=== PATIENT | male | born 1955 | race Caucasian/White ===

== ENCOUNTER 2016-09-18 06:24 | Day surgery (SDC) | payer OTHER ==
[~2016-09-18] VITALS: Ht 170.2 cm; Wt 92.3 kg
[~2016-09-18 06:24] MED LIST: ASPI81CH CHEW; ENAL5TAB PO; PRAS10TA PO; ROSU40 PO
[2016-09-18] MEDS ORDERED: NS 1000P @30 MLS/HR (KVO) IV SCH (06:45)
[2016-09-18 07:39] VITALS: BP 131/85; PULSE 60; RESP 18; TEMP 98.3; O2SAT 97
[2016-09-18] MEDS ORDERED: NITR0.4S SL (07:45)
[2016-09-18] MEDS ORDERED: METO50TA PO (07:45)
[2016-09-18] MEDS ORDERED: HEPARIN-NS/PF INJ 500 ML ONE (07:49)
[2016-09-18] MEDS ORDERED: MIDAZOLAM HCL 2 MG/2 ML VIAL ONE (07:49)
--- NOTE | 2016-09-18 08:37 | MA ---
cc: THOMAS NAJERA MD DATE: 09/18/2016 PROCEDURE Cardiac catheterization. PROCEDURAL STATEMENTS The patient was prepped and draped in the usual fashion. A 6 sheath was inserted percutaneously into the right femoral artery. Coronary angiography was done with Ant preformed catheters. Left ventriculography was done with a pigtail catheter in JAPANESE projections. RESULTS HEMODYNAMICS Aortic pressure was 140/65. Left ventricular end-diastolic pressure was 10. There was no gradient across the aortic valve. CORONARY ARTERIOGRAPHY The left main coronary was normal. The left anterior descending artery was normal throughout its course. The left circumflex artery was normal throughout its course. The right coronary was anatomically dominant. In the proximal portion there were multiple stents noted in essentially the same area of the proximal RCA. There was some in-stent stenosis of approximately 30%. The distal right coronary was free from disease. A LENNY was identified and was widely patent. LEFT VENTRICULOGRAPHY Left ventriculography demonstrated normal size left ventricle. There appeared to be some basilar wall hypokinesis. Overall ejection fraction was estimated at 50%. No mitral regurgitation was present. The aortic outflow tract appeared normal. CONCLUSIONS The patient demonstrates patent stents in the right coronary with preserved left ventricular ejection fraction and a widely patent right internal mammary artery. MD ABRIL De/TRISTIN /8:23 AM /8:33 AM
[2016-09-18] MEDS ORDERED: LIDOCAINE HCL 1% 50 ML VIAL INFIL PRN (08:45)
[2016-09-18] MEDS ORDERED: MISC INFORMATION XX ONE (08:45)
[2016-09-18] MEDS ORDERED: SODIUM CHLOR 0.9% 250 ML INJ 250 ML IV PRN (08:45)
[2016-09-18] MEDS ORDERED: SODIUM CHLORIDE 0.9% FLUSH 5 ML FLUSH IVF PRN (08:45)
[2016-09-18] MEDS ORDERED: ONDANSETRON HCL 4 MG/2 ML VIAL IV PRN (08:45)
[2016-09-18] MEDS ORDERED: METOCLOPRAMIDE HCL 10 MG/2 ML VIAL IV PRN (08:45)
[2016-09-18] MEDS ORDERED: ATROPINE SULFATE 1 MG/ML VIAL IV PRN (08:45)
[2016-09-18] MEDS ORDERED: BACITRACIN OINT 0.9 GM PKT TOP ONE (08:45)
[2016-09-18] MEDS ORDERED: LORazepam 2 MG/ML VIAL IV PRN (08:45)
[2016-09-18] MEDS ORDERED: SODIUM CHLORIDE 0.9% FLUSH 5 ML FLUSH IVF SCH (09:00)
[2016-09-18] MEDS ORDERED: ASPIRIN EC 81 MG TABEC PO SCH (09:00)
[2016-09-18] MEDS ORDERED: IODIXANOL 320 MG/ML 100 ML VIAL (for Cath Lab) OTHER ONE (10:16)
[2016-09-18] MEDS ORDERED: CHLORHEXIDINE GLUCONATE 4% SOLN 120 ML BTL TOPICAL SCH (11:30)
[2016-09-18] MEDS ORDERED: INSULIN REGULAR (IV INFUSION) 100 UNITS in SODIUM CHLORIDE 0.9% INJ 100 ML IV SCH (11:30)
[2016-09-18 12:20] LABS: BASOPHIL # 0.1 TH/MM3 (0-0.2); BASOPHIL % 1.1 % (0.0-2.0); EOSINOPHIL # 0.4 TH/MM3 (0-0.4); HEMATOCRIT 45.1 % (39.0-51.0); HEMO FLAGS DIFF FINAL; LYMPH % 28.6 % (9.0-44.0); MEAN CELL VOLUME 88.9 FL (80.0-100.0); MEAN CORPUSCULAR HEMOGLOBIN 30.8 PG (27.0-34.0); MEAN CORPUSCULAR HGB CONC 34.6 % (32.0-36.0); MONO % 6.9 % (0.0-8.0); NEUT % 57.4 % (16.0-70.0); PLATELET COUNT 163 TH/MM3 (150-450); RED BLOOD COUNT 5.08 MIL/MM3 (4.50-5.90); RED CELL DISTRIBUTION WIDTH 14.2 % (11.6-17.2)
--- NOTE | 2016-09-18 13:34 | EKG ---
Date Performed: 09/18/2016 Time Performed: 07:00:44 PTAGE: 61 years EKG: Sinus rhythm with PVC(s) Inferior infarct - age undetermined Abnormal ECG Compared to prior tracing no significan t change PREVIOUS TRACING : 07/03/2016 03.58 DOCTOR: Chaparro Chu Interpretating Date/Time 09/18/2016 13:32:13
--- NOTE | 2016-09-18 13:34 | RADRPT ---
EXAM DATE/TIME: 09/18/2016 12:26 [facility] COMPARISON: No previous studies available for comparison. INDICATIONS : Pre op cardiac surgery. MEDICAL HISTORY : Myocardial infarction. Hypercholesterolemia. Hypercholesterolemia. Left arm num bness. Hyperlipidemia. CAD. Hypertension. Irregular heart beat. Dyspnea. GERD. SURGICAL HISTORY : Appendectomy. Heart cath. 6 RCA stents. ENCOUNTER: Initial ACUITY: 1 day PAIN SCORE: 0/10 LOCATION: Bilateral neck PEAK SYSTOLIC VELOCITIES (cm/sec): ICA/CCA RATIO: Right: 1.1 Left: 1.0 ICA: Right: 88.9 Left: 131.4 CCA: Right: 80.2 Left: 75.7 ECA: Right: 100 Left: 103.2 VERTEBRAL: Right: 39.2 antegrade Left: 43.5 antegrade Elevated flow velocities and ICA/CCA ratios have been found to correlate with increased degrees of vessel stenosis, calculated as percentage of diameter relative to a normal segment of distal ICA/CCA FINDINGS: RIGHT CAROTID: There is no evidence for a hemodynamically significant carotid stenosis. Minimal int imal hyperplasia is present with scattered calcific plaque. LEFT CAROTID: There is no evidence for a hemodynamically significant carotid stenosis. Minimal inti mal hyperplasia is present with scattered calcific plaque. VERTEBRAL ARTERIES: Flow is antegrade in both vertebral arteries. MISCELLANEOUS: There are no ancillary masses or adenopathy. CONCLUSION: Negative examination for a hemodynamically significant carotid stenosis. Christopher Paredes MD FACR Board Certified Radiologist. This report was verified electronically.
[2016-09-18 13:45] LABS: INTERNATIONAL NORMALIZED RATIO 1.3 RATIO; PROTHROMBIN TIME - PATIENT 14.7 SEC (9.8-11.6)
--- NOTE | 2016-09-18 13:48 | RADRPT ---
EXAM DATE/TIME: 09/18/2016 12:45 [facility] COMPARISON: No previous studies available for comparison. INDICATIONS : Pre op cardiac surgery. MEDICAL HISTORY : Myocardial infarction. Hypercholesterolemia. Left arm numbness. Hyperlipidemia. CAD. Hypertension. I rregular heart beat. Dyspnea. GERD. SURGICAL HISTORY : Appendectomy. Heart cath. 6 RCA stents. ENCOUNTER: Initial ACUITY: 1 day PAIN SCORE: 0/10 LOCATION: Bilateral legs. TECHNIQUE: Venous ultrasound of the left and right leg was performed from the inguinal ligament to the proximal calf. Real-time, color Doppler and spectral tracing, compression and augmentation techniques were us ed. FINDINGS: RIGHT LEG: There is normal compressibility of the deep venous system from the inguinal region to the proximal ca lf. No echogenic clot is seen in the lumen of the common femoral, femoral, popliteal, and posterior tibial veins. There is a normal response of the venous system to proximal and distal augmentation an d respiration. LEFT LEG: There is normal compressibility of the deep venous system from the inguinal region to the proximal ca lf. No echogenic clot is seen in the lumen of the common femoral, femoral, popliteal, and posterior tibial veins. There is a normal response of the venous system to proximal and distal augmentation an d respiration. CONCLUSION: 1. No DVT in either lower extremity. Nacho Mo MD on September 18, 2016 at 13:44 Board Certified Radiologist. This report was verified electronically.
--- NOTE | 2016-09-18 14:07 | RADRPT ---
EXAM DATE/TIME: 09/18/2016 12:54 [facility] COMPARISON: No previous studies available for comparison. INDICATIONS : Pre op cardiac surgery. MEDICAL HISTORY : Hypercholesterolemia. Myocardial infarction. Left arm numbness. Hyperlipidemi a. CAD. Hypertension. Irregular heart beat. Dyspnea. GERD. SURGICAL HISTORY : Appendectomy. Heart cath. 6 RCA stents. ENCOUNTER: Initial ACUITY: 2 day PAIN SCORE: 0/10 LOCATION: Bilateral leg. GREATER SAPHENOUS VEIN THIGH: PROXIMAL: Right 4 mm Left 5 mm MID: Right 3 mm Left 3 mm DISTAL: Right 3 mm Left 2 mm CALF: PROXIMAL: Right 2 mm Left 2 mm MID: Right 2 mm Left 1 mm DISTAL: Right 2 mm Left 1 mm FINDINGS: The venous system of the lower extremities are patent by color Doppler imaging. Measurements of the leg veins (in mm) are listed above. CONCLUSION: Venous mapping as described above. Christopher Paredes MD FACR on September 18, 2016 at 14:06 Board Certified Radiologist. This report was verified electronically.
--- NOTE | 2016-09-18 14:12 | RADRPT ---
EXAM DATE/TIME: 09/18/2016 13:34 [facility] COMPARISON: No previous studies available for comparison. INDICATIONS : Chest Pain MEDICAL HISTORY : Hypertension. Myocardial infarction. Coronary artery disease. SURGICAL HISTORY : Coronary artery stent. ENCOUNTER: Initial ACUITY: 1 day PAIN SCORE: 3/10 LOCATION: Bilateral chest FINDINGS: PA and lateral views of the chest demonstrate the lungs to be symmetrically aerated without evidence of mass, infiltrate or effusion. The cardiomediastinal contours are unremarkable. Coronary stent is noted. Osseous structures are intact. CONCLUSION: Negative for acute process. Christopher Paredes MD FACR on September 18, 2016 at 14:10 Board Certified Radiologist. This report was verified electronically.
[2016-09-18 14:40] LABS: BICARBONATE 26.5 MEQ/L (21.0-32.0)
[2016-09-18 14:41] LABS: POTASSIUM 4.5 MEQ/L (3.5-5.1)
[2016-09-18 15:02] LABS: BLOOD, URINE NEG (NEG); GLUCOSE,URINE NEG (NEG); KETONE, URINE NEG (NEG); NITRITE,URINE NEG (NEG); URINE COLOR LIGHT-YELLOW (YELLW/STRAW)
[2016-09-18 15:20] LABS: COMMENT (UR) CULT NOT INDICATED; CULTURE IF INDICATED CULT NOT INDICATED
[2016-09-18 16:14] LABS: HEMOGLOBIN A1b 1.4 %; HEMOGLOBIN Ao 85.3 %; HEMOGLOBIN LA1C 2.2 %; HEMOGLOBIN P3 3.9 %
--- NOTE | 2016-09-18 17:56 | PD.CAR.PN ---
CVT Progress Note Subjective/Hospital Course: sts data discussed with pt RISK SCORES About the STS Risk Calculator Procedure: CAB Only Risk of Mortality: 0.322% Morbidity or Mortality: 4.201% Long Length of Stay: 1.377% Short Length of Stay: 79.297% Permanent Stroke: 0.206% Prolonged Ventilation: 2.765% DSW Infection: 0.189% Renal Failure: 0.468% Reoperation: 2.502 Objective: Vital Signs Date Time Temp Pulse Resp B/P Pulse Ox O2 Delivery O2 Flow Rate FiO2 09/18/16 09:38 Room Air 09/18/16 07:39 98.3 60 18 131/85 97 Labs: Laboratory Tests Test 09/18/16 09/18/16 09/18/16 09/18/16 11:56 13:17 13:44 14:28 White Blood Count 7.0 TH/MM3 (4.0-11.0) Red Blood Count 5.08 MIL/MM3 (4.50-5.90) Hemoglobin 15.6 GM/DL (13.0-17.0) Hematocrit 45.1 % (39.0-51.0) Mean Corpuscular Volume 88.9 FL (80.0-100.0) Mean Corpuscular Hemoglobin 30.8 PG (27.0-34.0) Mean Corpuscular Hemoglobin 34.6 % Concent (32.0-36.0) Red Cell Distribution Width 14.2 % (11.6-17.2) Platelet Count 163 TH/MM3 (150-450) Mean Platelet Volume 8.7 FL (7.0-11.0) Neutrophils (%) (Auto) 57.4 % (16.0-70.0) Lymphocytes (%) (Auto) 28.6 % (9.0-44.0) Monocytes (%) (Auto) 6.9 % (0.0-8.0) Eosinophils (%) (Auto) 6.0 % (0.0-4.0) Basophils (%) (Auto) 1.1 % (0.0-2.0) Neutrophils # (Auto) 4.0 TH/MM3 (1.8-7.7) Lymphocytes # (Auto) 2.0 TH/MM3 (1.0-4.8) Monocytes # (Auto) 0.5 TH/MM3 (0-0.9) Eosinophils # (Auto) 0.4 TH/MM3 (0-0.4) Basophils # (Auto) 0.1 TH/MM3 (0-0.2) CBC Comment DIFF FINAL Differential Comment Hemoglobin A1c 5.7 % (4.3-6.0) Prothrombin Time 14.7 SEC (9.8-11.6) Prothromb Time International 1.3 RATIO Ratio Sodium Level 140 MEQ/L (136-145) Potassium Level 4.5 MEQ/L (3.5-5.1) Chloride Level 105 MEQ/L (98-107) Carbon Dioxide Level 26.5 MEQ/L (21.0-32.0) Anion Gap 9 MEQ/L (5-15) Blood Urea Nitrogen 22 MG/DL (7-18) Creatinine 0.89 MG/DL (0.60-1.30) Estimat Glomerular Filtration 87 ML/MIN (>89) Rate Random Glucose 87 MG/DL (74-106) Calcium Level 9.3 MG/DL (8.5-10.1) Urine Color LIGHT-YELLOW (YELLW/STRAW) Urine Turbidity CLEAR (CLEAR) Urine pH 5.0 (5.0-8.5) Urine Specific [place] 1.014 (1.002-1.035) Urine Protein NEG mg/dL (NEG-TRACE) Urine Glucose (UA) NEG mg/dL (NEG) Urine Ketones NEG mg/dL (NEG) Urine Occult Blood NEG (NEG) Urine Nitrite NEG (NEG) Urine Bilirubin NEG (NEG) Urine Urobilinogen LESS THAN 2.0 MG/DL (LESS THAN 2.0) Urine Leukocyte Esterase NEG (NEG) Microscopic Urinalysis Comment CULT NOT INDICATED Nasal Screen MRSA (PCR) POSITIVE (NEGATIVE) Result Diagram: 09/18/16 1156 09/18/16 1344 Sophia Jauregui Sep 18, 2016 17:56
--- NOTE | 2016-09-19 08:11 | MB ---
cc: TANYA JUAN MD DATE OF CONSULTATION 09/18/2016 DATE OF 1955 HISTORY OF PRESENT ILLNESS A 61-year-old male, patient of Dr. Chaparro Chu, with a history of coronary artery disease, recurrently in-stent stenosis of the RCA, underwent cardiac cath today showing EF of 50%. The patient has had approximately eight stents in the past. His last cath was in 06/2016 where the right coronary was totally occluded and re-angioplastied. He has been complaining of some fatigue. We were consulted to evaluate for coronary artery bypass grafting. PAST MEDICAL HISTORY 1. Coronary artery disease. 2. Gastroesophageal reflux disease. 3. Hypertension. 4. Hyperlipidemia. 5. Malignant melanoma of the hand. 6. Prior AR. SURGERIES 1. RCA Cypher stent x 2 in January 2006. 2. Re-do 2006. 3. RCA stent in 2007. 4. Then again the patient had recent stent, re-angioplastied in 2015. FAMILY HISTORY AND ALLERGIES The patient has no known allergies. HOME MEDICATIONS 1. Metoprolol 50 b.i.d. 2. Crestor 40 p.o. daily. 3. Nitro p.r.n. 4. Aspirin 81 daily. 5. Effient which he stopped 5 days ago. FAMILY HISTORY Mother from respiratory complications at 76. Father still living at 85, rather healthy. SOCIAL HISTORY History of 40 pack-years of one pack, down to one pack per week. Drinks one to two beers per day. , five children. Works at [employer]. REVIEW OF SYSTEMS GENERAL: No night sweats, fever, heat or cold intolerance. SKIN: No psoriasis, itching or hives. HEENT: No blurred vision or hearing loss. RESPIRATORY: No cough, shortness of breath. CARDIOVASCULAR: As above in the HPI. GASTROINTESTINAL: No diarrhea, vomiting. GENITOURINARY: No burning, frequency, urgency. MOLECULAR GENETIC PATHOLOGIST: No history of TIA, CVA, seizure disorder. ENDOCRINOLOGY: No history of diabetes. PHYSICAL EXAMINATION VITAL SIGNS: On exam blood pressure 130/80, heart rate 60, afebrile. GENERAL: The patient is awake, alert, in no acute distress. HEENT: Head is normocephalic, atraumatic. Pupils equal and reactive. Oral mucosa pink, moist. NECK: Supple. No JVD. HEART SOUNDS: S1, S2. Regular rate and rhythm. No rubs, murmurs, gallops. LUNGS: Clear to auscultation. No wheezes, rales or rhonchi. ABDOMEN: Soft, nontender. No masses or organomegaly. EXTREMITIES: No cyanosis, clubbing or edema. LABORATORY FINDINGS Hemoglobin 15, hematocrit of 46, white cell count of 7.4, platelet count of 188. INR 1.0. Sodium 140, potassium 5.2, BUN 19, creatinine 0.87. Chest x-ray is unremarkable. IMPRESSION This is a 61-year-old male with multiple stents and angioplasty to the RCA. At this time plan will be a cardiac cath. Films have been reviewed by Dr. Tanya Juan. The procedures, alternatives and risks have been discussed with the patient. PLAN The plan is for a right internal mammary to the RCA on Sunday. STS data will be discussed with the patient documented in the electronic record. Further planning as per Dr. Juan. Dictated by: LEOBARDO Ann Tanya DAMON/DAVID /5:47 PM /8:11 AM
--- NOTE | 2016-09-20 09:03 | RSPPFT ---
DATE OF PROCEDURE: 09/18/16 COMMENTS: Spirometry with FVC of 3.4 predicted 3.7, FEV1 at 2.6 predicted 3.0, FEV1/FVC ratio 77% predicted 81%. IMPRESSION: On the basis of the above, patient's spirometry is within the predicted range.
== END 2016-09-18 15:00 | disposition home or self-care (01) ==
LOC: HDOC 06:24 → HDIC 06:24 → HDOC 15:00
PROVIDERS: ATTEND Internal Medicine Cardiovascular Disease
DX: I25.10 Atherosclerotic heart disease of native coronary artery without angina pectoris (principal); I10 Essential (primary) hypertension; E78.5 Hyperlipidemia, unspecified; I25.2 Old myocardial infarction; K21.9 Gastro-esophageal reflux disease without esophagitis; F17.210 Nicotine dependence, cigarettes, uncomplicated; Z95.5 Presence of coronary angioplasty implant and graft
CPT/HCPCS: 71020; 80048; 81001; 83036; 85025; 85610; 87641; 93005; 93458; 93880; 93970; 93998; 94010; C1769; C1893; J1644; J2250; Q9967

== ENCOUNTER 2016-09-19 14:11 | Inpatient (IN) | payer OTHER ==
[~2016-09-19] VITALS: Ht 170.2 cm; Wt 86.8 kg
[~2016-09-19 14:11] MED LIST changes: -ENAL5TAB PO; +METO50TA PO; +NITR0.4S SL
[2016-09-20] VITALS (12 sets, daily range): BP systolic 90–139; BP diastolic 44–74; PULSE 64–108; RESP 12–18; TEMP 96.6–98.5; O2SAT 95–100
[2016-09-20] MEDS ORDERED: PAPAVERINE 60 MG-NITROGLYCERIN 100 MCG-DILTIAZEM 100 MG in NS 100 ML IRRIGATION SCH ×4 (06:15)
[2016-09-20] MEDS ORDERED: CEFAZOLIN 500 MG in NS IRR BTL 500 ML IRRIGATION SCH (06:15)
[2016-09-20] MEDS ORDERED: INSULIN REGULAR 100 UNITS in NS 100 ML IV SCH (06:15)
[2016-09-20] MEDS: LACTATED RINGER'S 1000 ML IV SCH (06:15)
[2016-09-20] MEDS ORDERED: ceFAZolin 2 GM PREMIX 50 ML IV SCH (06:15)
[2016-09-20] MEDS ORDERED: CHLORHEXIDINE GLUCONATE 4% SOLN 120 ML BTL TOPICAL SCH (06:15)
[2016-09-20] MEDS ORDERED: SODIUM CHLORIDE 0.9% FLUSH 5 ML FLUSH IV FLUSH PRN ×2 (06:15→10:30)
[2016-09-20] MEDS ORDERED: METOPROLOL TARTRATE 25 MG TAB PO SCH (06:15)
[2016-09-20] MEDS ORDERED: HEPARIN SODIUM - SQ 10,000 UNITS/ML VIAL ONE (06:27)
[2016-09-20] MEDS ORDERED: VANCOMYCIN HCL 1000 MG VIAL ONE ×2 (06:27→07:13)
[2016-09-20] MEDS ORDERED: SODIUM CHLOR 0.9% 250 ML INJ 250 ML ONE (07:13)
[2016-09-20] MEDS: SODIUM CHLORID 0.9% 500 ML IV SCH (07:30)
[2016-09-20] MEDS ORDERED: SODIUM CHLORIDE 0.9% FLUSH 5 ML FLUSH IV FLUSH SCH (09:00)
[2016-09-20] MEDS: DOBUTamine PREMIX DRIP 250 ML IV SCH (10:17)
[2016-09-20] MEDS ORDERED: LACTATED RINGER'S 1000 ML INJ 500 ML IV PRN (10:17)
--- NOTE | 2016-09-20 10:28 | PD.OP ---
cc: Trinidad Thao MD; Eric Martin MD; Chaparro Chu MD, [facility] Operative Report Date of Surgery: Sep 20, 2016 Preoperative Diagnosis: Postoperative Diagnosis: Procedure: 1. Off-pump Coronary Artery Bypass Grafting x 1 with reverse saphenous vein graft to RCA 2. Right Leg Endoscopic Vein [place] 3. Intraoperative Vein Mapping. . Surgeon: Eric Martin Health Informatics Advisor(s): Florian Boles Operation and Findings: PREPROCEDURE DIAGNOSES 1. Severe Recurrent Right Coronary Artery Disease. 2. Recurrent In-stent Restenoses 3. Stable Angina 4. H/O AMI POSTPROCEDURE DIAGNOSES Same SURGICAL PROCEDURE 1. Off-pump Coronary Artery Bypass Grafting x 1 with reverse saphenous vein graft to RCA 2. Right Leg Endoscopic Vein [place] 3. Intraoperative Vein Mapping. SURGEON Eric Martin MD FISH BIN TENDER Lenore Boles, NIKHIL Sheridan ANESTHESIA General endotracheal . MELTER LOADER Kayleigh Yusuf, BRIAN Kraus MD PREPARATION ChloraPrep. COUNTS Needle, sponge, and instrument counts were correct. DRAINS One 32-Ugand[place] mediastinal tubes. COMPLICATIONS None. INDICATIONS FOR PROCEDURE The patient is a 61-year-old presenting with chest pain and recurrent in-stent restenosis of the RCA with multiple previous interventions. The patient is being brought to the operating room for surgical revascularization therapy. PROCEDURE Patient was brought to the operating room and placed supine on the OR table. Following the induction of adequate general endotracheal anesthesia and placement of appropriate monitoring devices, intraoperative vein mapping was performed which revealed good-caliber conduit in the right lower extremity with non-usable vein in the LLE. The patient was then prepped and draped in standard sterile fashion. Next, 2500 units of intravenous heparin was given. The right greater saphenous vein was harvested endoscopically. This appeared to be a good- caliber conduit. Simultaneously, a median sternotomy was performed. The pericardium was then divided in the midline, the cradle created and the target analyzed. At this point, all anastomoses were performed in a beating-heart fashion using the Maquet stabilizing system. The segment of saphenous vein graft was then anastomosed to the distal RCA in an end-to-side fashion using 7- 0 Prolene. The proximal anastomosis was then constructed to the ascending aorta in a running manner using 6-0 Prolene. All anastomotic sites were inspected and appeared to be hemostatic and patent. Protamine solution was given. Strict hemostasis was assured. The closure was undertaken. 1 chest tubes were placed. The pericardium was reapproximated in the midline. The sternum was approximated using sternal wires. The muscular and fascial layer were then closed in 3 layers. The endoscopic vein harvest site was closed in 2 layers. The patient tolerated the procedure well and was transferred to CVICU in stable condition. Eric Martin MD Sep 20, 2016 10:28
[2016-09-20] MEDS ORDERED: ACETAMINOPHEN 325 MG TAB PO PRN (10:30)
[2016-09-20] MEDS ORDERED: CALCIUM CHLORIDE INJ 1 GM in SODIUM CHLORIDE 0.9% INJ 100 ML IV PRN (10:30)
[2016-09-20] MEDS ORDERED: DEXMEDETOMIDINE INJ 50 ML IV SCH (10:30)
[2016-09-20] MEDS ORDERED: PHENYLEPHRINE INJ 40 MG in DEXTROSE 5% IN WATE 500 ML INJ 496 ML IV SCH ×2 (10:30)
[2016-09-20] MEDS ORDERED: EPINEPHrine (1:1000) INJ 4 MG in DEXTROSE 5% IN WATER INJ 246 ML IV SCH ×2 (10:30)
[2016-09-20] MEDS ORDERED: METOPROLOL TARTRATE 5 MG/5 ML VIAL IV PUSH PRN (10:30)
[2016-09-20] MEDS ORDERED: CALCIUM CHLORIDE 10% 1 GRAM/10 ML VIAL IV PRN (10:30)
[2016-09-20] MEDS ORDERED: POTASSIUM CHLOR 20 MEQ PREMIX 100 ML IV PRN ×3 (10:30)
[2016-09-20] MEDS ORDERED: INSULIN REGULAR (IV INFUSION) 100 UNITS in SODIUM CHLORIDE 0.9% INJ 99 ML IV SCH (10:30)
[2016-09-20] MEDS ORDERED: ALBUMIN HUMAN 5% 12.5 GM/250 ML BOTTLE IV PRN (10:30)
[2016-09-20] MEDS ORDERED: KETOROLAC TROMETHAMINE 30 MG/ML (IVP) VIAL IV PUSH PRN (10:30)
[2016-09-20] MEDS ORDERED: Post-op Orders (for Pharmacy) MISC OTHER ONE (10:30)
[2016-09-20] MEDS ORDERED: hydrALAZINE HCL 20 MG/ML VIAL IV PRN (10:30)
[2016-09-20] MEDS ORDERED: DOPamine INJ PREMIX 500 ML IV SCH (10:30)
[2016-09-20] MEDS ORDERED: CLEVIDIPINE INJ 50 ML IV SCH (10:30)
[2016-09-20] MEDS ORDERED: DEXTROSE 50% IN WATER 50 ML VIAL(D50) IV PUSH PRN (10:30)
[2016-09-20] MEDS ORDERED: POTASSIUM CHLORIDE 20 MEQ CONTROLLED RELEASE TAB PO PRN ×2 (10:30)
[2016-09-20] MEDS ORDERED: ONDANSETRON HCL 4 MG/2 ML VIAL IV PUSH PRN (10:30)
[2016-09-20] MEDS ORDERED: ACETAMINOPHEN 650 MG SUPP RECTAL PRN (10:30)
[2016-09-20] MEDS ORDERED: NITROGLYCERIN-DEXTROSE INJ 250 ML IV SCH (10:30)
[2016-09-20] MEDS ORDERED: MORPHINE SULFATE 4 MG/ML INJ IV PRN (10:30)
[2016-09-20] MEDS ORDERED: MAGNESIUM SULFATE INJ 2 GM in SODIUM CHLORIDE 0.9% INJ 100 ML IV PRN ×4 (10:30)
[2016-09-20] MEDS ORDERED: MEPERIDINE HCL 25 MG/ML VIAL IV PRN (10:30)
[2016-09-20] MEDS ORDERED: fentaNYL CITRATE 1000 MCG/20 ML VIAL ONE (10:57)
[2016-09-20] MEDS ORDERED: MIDAZOLAM HCL 5 MG/5 ML VIAL ONE (10:57)
[2016-09-20] MEDS: ACETAMINOPHEN 1000 MG/100 ML VIAL IV SCH ×3 (11:33→23:28)
--- NOTE | 2016-09-20 11:46 | RADRPT ---
EXAM DATE/TIME: 09/20/2016 11:06 [facility] COMPARISON: CHEST PA & LAT, September 18, 2016, 13:34. INDICATIONS : Post CABG. MEDICAL HISTORY : None. SURGICAL HISTORY : None. ENCOUNTER: Subsequent ACUITY: 1 day PAIN SCORE: Non-responsive. LOCATION: Bilateral chest FINDINGS: The patient is post median sternotomy. The ET tube, mediastinal drain, right jugular line and NG tube are in excellent position. There is minimal platelike atelectasis at the left lung base. CONCLUSION: 1. Stable post operative chest. Kirill Paredes MD on September 20, 2016 at 11:44 Board Certified Radiologist. This report was verified electronically.
[2016-09-20] MEDS ORDERED: NORMOSOL R INJ 1,000 ML IV ONE (12:00)
[2016-09-20] MEDS ORDERED: PROPOFOL 1000 MG/100 ML INJ 100 ML ONE (12:11)
[2016-09-20] MEDS: oxyCODONE/ACETAMINOPHEN 5 MG/325 MG TAB PO PRN ×3 (14:08→20:27)
[2016-09-20] MEDS ORDERED: AMINOCAPROIC ACID INJ 250 MG/ML 20 ML VIAL IV ONE ×2 (14:57→15:54)
[2016-09-20] MEDS ORDERED: ARTIFICIAL TEARS OPTH OINT 3.5 APPLIC/3.5 GM TUBO ONE (14:57)
[2016-09-20] MEDS ORDERED: VECURONIUM BROMIDE 10 MG VIAL IV ONE (14:57)
[2016-09-20] MEDS ORDERED: MAGNESIUM SULFATE 1000 MG/2 ML VIAL (PED) IV ONE (14:57)
[2016-09-20] MEDS ORDERED: HEPARIN SODIUM - SQ 10,000 UNITS/ML VIAL SQ ONE (14:57)
[2016-09-20] MEDS ORDERED: METOPROLOL TARTRATE 5 MG/5 ML VIAL IV PUSH ONE (14:57)
[2016-09-20] MEDS ORDERED: PROTAMINE SULFATE 250 MG/25 ML VIAL IV ONE (14:57)
[2016-09-20] MEDS ORDERED: PROPOFOL 1000 MG/100 ML INJ 100 ML IV ONE (14:57)
[2016-09-20] MEDS ORDERED: SODIUM CHLORID 0.9% 500 ML INJ 500 ML IV ONE (15:54)
[2016-09-20] MEDS ORDERED: LACTATED RINGER'S 1000 ML INJ 1,000 ML IV ONE (15:54)
[2016-09-20] MEDS ORDERED: SODIUM CHLOR 0.9% 1000 ML INJ 1,000 ML IV ONE (15:54)
[2016-09-20] MEDS ORDERED: SODIUM CHLOR 0.9% 250 ML INJ 250 ML IV ONE (15:54)
[2016-09-20] MEDS ORDERED: RESP: ALBUTEROL 2.5 MG/IPRATROPIUM 0.5 MG NEB (PRN) NEB (17:30)
[2016-09-20] MEDS ORDERED: RESP: RACEPINEPHRINE 2.25% 0.5 ML NEB NEB PRN (17:30)
[2016-09-20] MEDS: RESP: ALBUTEROL 2.5 MG/IPRATROPIUM 0.5 MG NEB (SCH) NEB (20:00)
[2016-09-20] MEDS: VANCOMYCIN INJ 1,000 MG in SODIUM CHLOR 0.9% 250 ML INJ 250 ML IV SCH (20:25)
[2016-09-20] MEDS: AMIODARONE 200 MG TAB PO SCH (20:26)
[2016-09-20] MEDS: SODIUM CHLORIDE 0.9% FLUSH 5 ML FLUSH IV FLUSH SCH (20:26)
[2016-09-21] VITALS (21 sets, daily range): BP systolic 98–141; BP diastolic 60–87; PULSE 68–98; RESP 16–20; TEMP 97.1–98.6; O2SAT 92–97
[2016-09-21] MEDS: SODIUM CHLORID 0.9% 500 ML IV SCH (00:10)
[2016-09-21] MEDS: RESP: ALBUTEROL 2.5 MG/IPRATROPIUM 0.5 MG NEB (SCH) NEB ×4 (04:21→20:49)
[2016-09-21] MEDS: ACETAMINOPHEN 1000 MG/100 ML VIAL IV SCH (04:52)
[2016-09-21 05:27] LABS: HEMATOCRIT 37.7 % (39.0-51.0); MEAN CELL VOLUME 89.8 FL (80.0-100.0); MEAN CORPUSCULAR HEMOGLOBIN 31.1 PG (27.0-34.0); MEAN CORPUSCULAR HGB CONC 34.6 % (32.0-36.0); PLATELET COUNT 140 TH/MM3 (150-450); RED CELL DISTRIBUTION WIDTH 14.7 % (11.6-17.2); REVIEW FLAG FINAL; WHITE BLOOD COUNT 10.2 TH/MM3 (4.0-11.0)
[2016-09-21 05:46] LABS: BICARBONATE 27.4 MEQ/L (21.0-32.0); MAGNESIUM 1.7 MG/DL (1.5-2.5); POTASSIUM 3.9 MEQ/L (3.5-5.1)
[2016-09-21] MEDS: PANTOPRAZOLE SOD 40 MG DELAYED RELEASE TAB PO SCH (05:54)
[2016-09-21] MEDS: oxyCODONE/ACETAMINOPHEN 5 MG/325 MG TAB PO PRN ×5 (05:56→21:49)
--- NOTE | 2016-09-21 06:18 | RADRPT ---
EXAM DATE/TIME: 09/21/2016 04:15 [facility] COMPARISON: CHEST SINGLE AP, September 20, 2016, 11:06. INDICATIONS : Shortness of breath, possible pulmonary disease. MEDICAL HISTORY : None. SURGICAL HISTORY : CABG. ENCOUNTER: Subsequent ACUITY: 2 days PAIN SCORE: 0/10 LOCATION: Bilateral chest FINDINGS: A single view of the chest demonstrates right central line in superior vena cava. Central chest tube present. Subsegmental airspace disease at the lung bases. Postoperative median sternotomy. Interval e xtubation. CONCLUSION: 1. Interval extubation. Right central line and central chest tube unchanged. Subsegmental airspace di sease at the lung bases. Dusty Rockwell MD on September 21, 2016 at 6:15 Board Certified Radiologist. This report was verified electronically.
[2016-09-21] MEDS: DOBUTamine PREMIX DRIP 250 ML IV SCH (06:22)
[2016-09-21] MEDS: LACTATED RINGER'S 1000 ML IV SCH (07:30)
[2016-09-21] MEDS: CLOPIDOGREL 75 MG TAB PO SCH (08:47)
[2016-09-21] MEDS: ASPIRIN 81 MG CHEW TAB PO SCH (08:47)
[2016-09-21] MEDS: AMIODARONE 200 MG TAB PO SCH ×2 (08:47→21:44)
[2016-09-21] MEDS: SODIUM CHLORIDE 0.9% FLUSH 5 ML FLUSH IV FLUSH SCH ×2 (08:49→21:45)
[2016-09-21] MEDS: VANCOMYCIN INJ 1,000 MG in SODIUM CHLOR 0.9% 250 ML INJ 250 ML IV SCH (08:52)
[2016-09-21] MEDS ORDERED: BISACODYL 10 MG SUPP RECTAL PRN (10:15)
[2016-09-21] MEDS ORDERED: GLUCAGON 1 MG/ML VIAL OTHER PRN (10:15)
[2016-09-21] MEDS ORDERED: DOCUSATE SODIUM 100 MG CAP PO SCH (10:15)
[2016-09-21] MEDS: METOPROLOL TARTRATE 25 MG TAB PO SCH ×2 (10:15→21:44)
[2016-09-21] MEDS ORDERED: DEXTROSE 50% IN WATER 50 ML VIAL(D50) IV PRN (10:15)
[2016-09-21] MEDS ORDERED: SOD PHOSPHATE/SOD BIPHOSPHATE (ADULT) ENEMA 133ML RECTAL PRN (10:15)
--- NOTE | 2016-09-21 10:27 | PD.CAR.PN ---
CVT Progress Note CVT: POD #: 1 Subjective/Hospital Course: 61/ male hx CAD, multiple stents to RCA / PCI eval for CABG to RCA PMH: CAD/ [place], GERD, HTN, HLP, surgery: Off-pump Coronary Artery Bypass Grafting x 1 with reverse saphenous vein graft to RCA, Right Leg Endoscopic Vein [place] 09/20 crystalloid 2100cc, EBL 100, urine 600 extubated after surgery 3/ up in chair, on nasal cannula painful, will add prn morphine sulfate for breakthrough pain aggressive pulm toileting OOB, ambulate Objective: GENERAL: SKIN: Warm and dry./ prevena to chest, erika wrap to right leg HEAD: Normocephalic. EYES: No scleral icterus. No injection or drainage. NECK: Supple, trachea midline. No JVD or lymphadenopathy. CARDIOVASCULAR: Regular rate and rhythm without murmurs, gallops, or rubs. RESPIRATORY: diminished in bases, chest tube to wall suction / drained 110cc/ 12 hrs GASTROINTESTINAL: Abdomen soft, non-tender, nondistended. MUSCULOSKELETAL: No cyanosis, or edema. BACK: Nontender without obvious deformity. No CVA tenderness. Vital Signs Date Time Temp Pulse Resp B/P Pulse Ox O2 Delivery O2 Flow Rate FiO2 09/21/16 09:00 97 Nasal Cannula 2.00 09/21/16 07:00 98.3 81 18 117/70 97 Arterial Line 09/21/16 07:00 79 09/21/16 07:00 95 Nasal Cannula 2.00 09/21/16 05:53 16 09/21/16 04:00 79 09/21/16 04:00 97.1 68 18 124/72 95 09/21/16 00:00 97.1 68 16 141/78 95 106/87 09/21/16 00:00 16 09/21/16 00:00 70 09/20/16 21:30 16 09/20/16 21:00 98.3 68 16 110/68 95 129/74 09/20/16 20:01 96 Nasal Cannula 2.00 09/20/16 20:00 69 09/20/16 20:00 95 Nasal Cannula 2.00 09/20/16 20:00 98.5 69 16 90/65 95 09/20/16 18:10 108 09/20/16 18:09 97.2 108 18 94/52 99 09/20/16 15:00 98.2 67 18 105/44 99 113/56 09/20/16 15:00 75 09/20/16 15:00 64 09/20/16 13:42 98.1 09/20/16 12:20 100 Nasal Cannula 4.00 09/20/16 12:20 100 Nasal Cannula 4 09/20/16 11:45 50 09/20/16 11:00 96.6 67 12 110/62 99 94/55 09/20/16 11:00 97.6 09/20/16 11:00 73 09/20/16 10:52 99 50 09/20/16 10:45 97.9 74 12 119/74 99 124/65 09/20/16 10:45 50 Labs: Laboratory Tests Test 09/21/16 04:35 White Blood Count 10.2 TH/MM3 (4.0-11.0) Red Blood Count 4.20 MIL/MM3 (4.50-5.90) Hemoglobin 13.0 GM/DL (13.0-17.0) Hematocrit 37.7 % (39.0-51.0) Mean Corpuscular Volume 89.8 FL (80.0-100.0) Mean Corpuscular Hemoglobin 31.1 PG (27.0-34.0) Mean Corpuscular Hemoglobin 34.6 % Concent (32.0-36.0) Red Cell Distribution Width 14.7 % (11.6-17.2) Platelet Count 140 TH/MM3 (150-450) Mean Platelet Volume 9.0 FL (7.0-11.0) Sodium Level 141 MEQ/L (136-145) Potassium Level 3.9 MEQ/L (3.5-5.1) Chloride Level 106 MEQ/L (98-107) Carbon Dioxide Level 27.4 MEQ/L (21.0-32.0) Anion Gap 8 MEQ/L (5-15) Blood Urea Nitrogen 11 MG/DL (7-18) Creatinine 0.77 MG/DL (0.60-1.30) Estimat Glomerular Filtration 103 ML/MIN Rate (>89) Random Glucose 113 MG/DL (74-106) Calcium Level 7.9 MG/DL (8.5-10.1) Magnesium Level 1.7 MG/DL (1.5-2.5) Result Diagram: 3/2/17 0435 3/2/17 0435 Telemetry: NSR (1) CAD (coronary artery disease) (2) S/P CABG x 2 Plan: ASA, statin , BB , Plavix pulm toileting neb, ezpap acapella leave chest tubes in ambulate CM to eval for HHC (3) GERD (gastroesophageal reflux disease) Plan: on PPI (4) Cardiomyopathy, ischemic Plan: EF 50% Sopiha Jauregui Sep 21, 2016 10:27
[2016-09-21] MEDS ORDERED: MORPHINE SULFATE 4 MG/ML INJ ONE (11:58)
[2016-09-21] MEDS ORDERED: MORPHINE SULFATE 4 MG/ML INJ IV PRN (12:30)
--- NOTE | 2016-09-21 13:11 | HHI.FF ---
Face to Face Verification Diagnosis: (1) HTN (hypertension), benign (2) STEMI (ST elevation myocardial infarction) (3) GERD (gastroesophageal reflux disease) (4) S/P CABG x 2 Home Health Nursing Order: Signs/symptoms of disease process Wound care and dressing changes Instructions: Incentive spirometry Q1 hr x 10, while awake, also use acapella device hourly whole awake Sternal Breast Bone Precautions: NO pushing or pulling, ( pt must use sternal pillow to support chest with all activities and with coughing ( takes up to 3 months breast bone to heal ) Daily incision care: ok to shower daily, no tub bath. Wash all incisions with liquid dial soap, clean wash cloth to each site, rinse and pat dry. Observe for any signs of infection, such as drainage which is dark yellow, hernandez, green or foul smelling. Immediately report to the surgeon any drainage from the chest incision, or legs, and for any abnormal drainage from the chest tube sites. Notify surgeon if any temp >101.5 degrees F. When specialty dressing removed/ or if you do not have one, continue to shower daily as above, then rinse and pat incision dry and paint with betadine daily x 5 days. Allow steri strips to fall off if you have any. Avoid lotions, creams, salves, oils, etc. for the first month Please see attached forms for additional instructions regarding post Open Heart specialty wound vacuum dressings. SHADIA or Prevena , Dressing to be removed by Nursing staff on ___09/27/16____ F/U appointment: as per [place] instructions: PCP in 2 weeks, CV surgeon 2 weeks, [place] 3-4 weeks For any questions regarding incisions/ dressing / meds / post op care or above Symptoms, Sunday 8am-5pm Heart & Vascular Surgery Office ( Dr. Martin & Dr. Odonnell), After Hours / Nights (5pm -8am) Weekends and Holidays Please call [facility] Card[facility] Unit ([facility]) Charge Nurse Heart and Vascular Surgery patients *Special attention to sternal dressing Mandatory frequency Assess and evaluation, 4 days in a row The next week 3X week 2 times a week for 4 weeks 1 time a week for 5 weeks Schedule Heart and Vascular patients for full 60 day certification period Initial visit Review Open Heart Surgery Discharge Instructions (Sternal precautions, Activity, Elastic hose, Incision care, Driving, Incentive spirometry, Smoking, [place], Work and other) Need Betadine to paint incision Medication reconciliation Importance of follow up care/ check on appointments Make calendar record temperature daily When to call [facility] nurse, review instructions, phone list Incentive Spirometry, demonstration Visit 1- Begin discharge instruction for patient family and/ or caregiver using teach back method- Signs and symptoms of infection Disease characteristics Medicines and side effects Foods and nutrition/ appetite Infection control/ hand washing/ hygiene Visit 2- Continue teaching Discharge instructions- include additional information on smoking cessation , sternal dressing (sternal vac) Visit 3- Continue teaching- Cough and deep breathing, incision monitoring. Choose my plate Visit 4- Continue teaching- Discuss limitations Discuss how they are feeling Discuss progress toward goals Remaining visits- continue teaching and monitoring I have seen patient Hebert Kaplan on 09/21/16. My clinical findings support the need for the requested home health care services because: Deconditioned w/ increased weakness I certify that my clinical findings support that this patient is homebound because: Post-op weakness Sophia Jauregui Sep 21, 2016 13:11
[2016-09-21] MEDS: INSULIN ASPART SUPPLEMENTAL SCALE SQ SCH ×2 (17:16→21:48)
[2016-09-21] MEDS: diphenhydrAMINE HCL 50 MG CAP PO PRN (21:44)
[2016-09-21] MEDS: DOCUSATE SODIUM 100 MG CAP PO SCH (21:44)
[2016-09-21] MEDS: ATORVASTATIN 80 MG TAB PO SCH (21:44)
[2016-09-21] MEDS: SENNOSIDES 8.6 MG TAB PO SCH (21:44)
--- NOTE | 2016-09-21 23:40 | EKG ---
Date Performed: 09/21/2016 Time Performed: 05:08:42 PTAGE: 61 years EKG: Sinus rhythm Inferior infarct - age undetermined Anterolateral T wave changes are nonspecific Abnormal ECG NO PREVIOUS TRACING DOCTOR: Jai Melara Interpretating Date/Time 09/21/2016 23:40:07
[2016-09-22] VITALS (25 sets, daily range): BP systolic 106–121; BP diastolic 57–87; PULSE 66–95; RESP 16–22; TEMP 98.3–99.2; O2SAT 92–95
[2016-09-22] MEDS: INSULIN ASPART SUPPLEMENTAL SCALE SQ SCH ×3 (02:00→10:00)
[2016-09-22] MEDS: oxyCODONE/ACETAMINOPHEN 5 MG/325 MG TAB PO PRN ×4 (03:05→20:08)
[2016-09-22 03:39] LABS: AUTOMATED NEUTROPHIL # 6.1 TH/MM3 (1.8-7.7); BASOPHIL # 0.1 TH/MM3 (0-0.2); BASOPHIL % 0.6 % (0.0-2.0); EOSINOPHIL # 0.4 TH/MM3 (0-0.4); EOSINOPHIL % 3.9 % (0.0-4.0); HEMATOCRIT 33.9 % (39.0-51.0); HEMO FLAGS DIFF FINAL; LYMPH % 20.3 % (9.0-44.0); LYMPHOCYTE # 1.9 TH/MM3 (1.0-4.8); MEAN CELL VOLUME 90.6 FL (80.0-100.0); MEAN CORPUSCULAR HEMOGLOBIN 31.1 PG (27.0-34.0); MEAN CORPUSCULAR HGB CONC 34.3 % (32.0-36.0); MONO % 10.4 % (0.0-8.0); NEUT % 64.8 % (16.0-70.0); PLATELET COUNT 123 TH/MM3 (150-450); RED BLOOD COUNT 3.74 MIL/MM3 (4.50-5.90); RED CELL DISTRIBUTION WIDTH 14.5 % (11.6-17.2); WHITE BLOOD COUNT 9.4 TH/MM3 (4.0-11.0)
[2016-09-22 03:47] LABS: BICARBONATE 30.6 MEQ/L (21.0-32.0)
[2016-09-22] MEDS: PANTOPRAZOLE SOD 40 MG DELAYED RELEASE TAB PO SCH (05:50)
[2016-09-22] MEDS: RESP: ALBUTEROL 2.5 MG/IPRATROPIUM 0.5 MG NEB (SCH) NEB ×3 (07:56→21:02)
[2016-09-22] MEDS ORDERED: MAGNESIUM SULFATE 1 GM PREMIX 100 ML IV ONE (08:30)
[2016-09-22] MEDS: MAGNESIUM HYDROXIDE SUSP 30 ML CUP PO SCH (10:11)
[2016-09-22] MEDS: SODIUM CHLORIDE 0.9% FLUSH 5 ML FLUSH IV FLUSH SCH ×2 (10:12→20:31)
[2016-09-22] MEDS: METOPROLOL TARTRATE 25 MG TAB PO SCH ×2 (10:12→20:31)
[2016-09-22] MEDS: POLYETHYLENE GLYCOL 17 GM PKG PO SCH (10:12)
--- NOTE | 2016-09-22 10:12 | PD.CAR.PN ---
CVT Progress Note CVT: POD #: 2 Subjective/Hospital Course: 61/ male hx CAD, multiple stents to RCA / PCI eval for CABG to RCA PMH: CAD/ [place], GERD, HTN, HLP, surgery: Off-pump Coronary Artery Bypass Grafting x 1 with reverse saphenous vein graft to RCA, Right Leg Endoscopic Vein [place] 09/20 crystalloid 2100cc, EBL 100, urine 600 extubated after surgery 3/ up in chair, on nasal cannula painful, will add prn morphine sulfate for breakthrough pain aggressive pulm toileting OOB, ambulate 09/22 chest tube removed without difficulty wean 02 gentle diuresis pain controlled Objective: Vital Signs Date Time Temp Pulse Resp B/P Pulse Ox O2 Delivery O2 Flow Rate FiO2 09/22/16 08:12 Nasal Cannula 2.00 09/22/16 08:00 83 09/22/16 07:59 93 21 09/22/16 07:00 80 09/22/16 06:09 78 09/22/16 05:05 81 09/22/16 04:41 75 09/22/16 03:00 94 3.00 09/22/16 03:00 78 09/22/16 03:00 98.3 82 18 106/66 94 09/22/16 02:18 74 09/22/16 01:23 74 09/22/16 00:16 93 Nasal Cannula 3.00 09/22/16 00:00 85 09/21/16 23:45 98.4 81 20 118/61 93 09/21/16 23:00 87 09/21/16 22:00 81 09/21/16 21:00 80 09/21/16 20:55 95 Nasal Cannula 2.00 09/21/16 20:00 81 09/21/16 19:15 98.6 87 20 127/71 92 09/21/16 19:15 92 Nasal Cannula 2.00 09/21/16 19:00 87 09/21/16 18:00 94 09/21/16 17:00 96 09/21/16 16:00 98 09/21/16 15:55 92 09/21/16 15:55 93 Room Air 09/21/16 15:55 97.5 92 20 124/66 93 09/21/16 15:00 95 09/21/16 14:00 86 09/21/16 13:00 91 09/21/16 11:00 98.1 87 18 114/67 97 09/21/16 11:00 82 09/21/16 10:38 97.3 85 17 98/60 95 Labs: Laboratory Tests Test 09/22/16 03:00 White Blood Count 9.4 TH/MM3 (4.0-11.0) Red Blood Count 3.74 MIL/MM3 (4.50-5.90) Hemoglobin 11.6 GM/DL (13.0-17.0) Hematocrit 33.9 % (39.0-51.0) Mean Corpuscular Volume 90.6 FL (80.0-100.0) Mean Corpuscular Hemoglobin 31.1 PG (27.0-34.0) Mean Corpuscular Hemoglobin 34.3 % Concent (32.0-36.0) Red Cell Distribution Width 14.5 % (11.6-17.2) Platelet Count 123 TH/MM3 (150-450) Mean Platelet Volume 8.7 FL (7.0-11.0) Neutrophils (%) (Auto) 64.8 % (16.0-70.0) Lymphocytes (%) (Auto) 20.3 % (9.0-44.0) Monocytes (%) (Auto) 10.4 % (0.0-8.0) Eosinophils (%) (Auto) 3.9 % (0.0-4.0) Basophils (%) (Auto) 0.6 % (0.0-2.0) Neutrophils # (Auto) 6.1 TH/MM3 (1.8-7.7) Lymphocytes # (Auto) 1.9 TH/MM3 (1.0-4.8) Monocytes # (Auto) 1.0 TH/MM3 (0-0.9) Eosinophils # (Auto) 0.4 TH/MM3 (0-0.4) Basophils # (Auto) 0.1 TH/MM3 (0-0.2) CBC Comment DIFF FINAL Differential Comment Sodium Level 138 MEQ/L (136-145) Potassium Level 4.0 MEQ/L (3.5-5.1) Chloride Level 104 MEQ/L (98-107) Carbon Dioxide Level 30.6 MEQ/L (21.0-32.0) Anion Gap 3 MEQ/L (5-15) Blood Urea Nitrogen 10 MG/DL (7-18) Creatinine 0.77 MG/DL (0.60-1.30) Estimat Glomerular Filtration 103 ML/MIN Rate (>89) Random Glucose 122 MG/DL (74-106) Calcium Level 8.1 MG/DL (8.5-10.1) Magnesium Level 2.0 MG/DL (1.5-2.5) Result Diagram: 09/22/16 0300 09/22/16 0300 Telemetry: NSR (1) CAD (coronary artery disease) (2) S/P CABG x 2 Plan: ASA, statin , BB , Plavix . gentle diuresis pulm toileting neb, ezpap acapella ambulate CM to eval for HHC (3) GERD (gastroesophageal reflux disease) Plan: on PPI (4) Cardiomyopathy, ischemic Plan: EF 50% Sophia Jauregui Sep 22, 2016 10:12
[2016-09-22] MEDS: AMIODARONE 200 MG TAB PO SCH ×2 (10:13→20:30)
[2016-09-22] MEDS: ASPIRIN 81 MG CHEW TAB PO SCH (10:13)
[2016-09-22] MEDS: DOCUSATE SODIUM 100 MG CAP PO SCH ×2 (10:13→20:30)
[2016-09-22] MEDS: CLOPIDOGREL 75 MG TAB PO SCH (10:13)
[2016-09-22] MEDS: MULTIVITAMINS/MINERALS THERAPEUTIC TAB PO SCH (10:13)
[2016-09-22] MEDS ORDERED: FUROSEMIDE 20 MG/2 ML VIAL IV PUSH ONE (11:00)
[2016-09-22] MEDS ORDERED: POTASSIUM CHLORIDE 10 MEQ CONTROLLED RELEASE TAB PO ONE (11:00)
[2016-09-22] MEDS ORDERED: INSULIN ASPART SUPPLEMENTAL SCALE SQ SCH (16:00)
[2016-09-22] MEDS ORDERED: METO25TA3 PO (16:28)
[2016-09-22] MEDS ORDERED: AMIO200T PO (16:28)
[2016-09-22] MEDS ORDERED: DOCU1CAP39 PO (16:28)
[2016-09-22] MEDS ORDERED: PLAV75TA29 PO (16:28)
--- NOTE | 2016-09-22 16:34 | HHI.DS ---
Discharge Summary Admission Date Sep 20, 2016 at 05:36 Discharge Date: Sep 24, 2016 Admitting Diagnosis 1. Severe Recurrent Right Coronary Artery Disease. 2. Recurrent In-stent Restenoses 3. Stable Angina 4. H/O AMI (1) CAD (coronary artery disease) Diagnosis: Principal (2) GERD (gastroesophageal reflux disease) Diagnosis: Principal (3) HTN (hypertension), benign Diagnosis: Principal (4) S/P CABG x 2 Diagnosis: Secondary Procedures 1. Off-pump Coronary Artery Bypass Grafting x 1 with reverse saphenous vein graft to RCA 09/20/16 2. Right Leg Endoscopic Vein [place] 3. Intraoperative Vein Mapping. Brief History 61/ male hx CAD, multiple stents to RCA / PCI eval for CABG to RCA PMH: CAD/ [place], GERD, HTN, HLP, surgery: Off-pump Coronary Artery Bypass Grafting x 1 with reverse saphenous vein graft to RCA, Right Leg Endoscopic Vein [place] 09/20 crystalloid 2100cc, EBL 100, urine 600 extubated after surgery CBC/BMP: 09/22/16 0300 09/22/16 0300 Significant Findings Laboratory Tests Test 09/21/16 09/22/16 04:35 03:00 Red Blood Count 4.20 MIL/MM3 3.74 MIL/MM3 (4.50-5.90) (4.50-5.90) Hematocrit 37.7 % 33.9 % (39.0-51.0) (39.0-51.0) Platelet Count 140 TH/MM3 123 TH/MM3 (150-450) (150-450) Random Glucose 113 MG/DL 122 MG/DL (74-106) (74-106) Calcium Level 7.9 MG/DL 8.1 MG/DL (8.5-10.1) (8.5-10.1) Hemoglobin 11.6 GM/DL (13.0-17.0) Monocytes (%) (Auto) 10.4 % (0.0-8.0) Monocytes # (Auto) 1.0 TH/MM3 (0-0.9) Anion Gap 3 MEQ/L (5-15) Imaging Last Impressions Chest X-Ray 09/21/16 0500 Signed Impressions: Service Date/Time: September 04:15 - CONCLUSION: 1. Interval extubation. Right central line and central chest tube unchanged. Subsegmental airspace disease at the lung bases. Dusty Rockwell MD PE at Discharge GENERAL: SKIN: Warm and dry.prevena to chest, incision intact left leg, with some mild ecchymosis HEAD: Normocephalic. EYES: No scleral icterus. No injection or drainage. NECK: Supple, trachea midline. No JVD or lymphadenopathy. CARDIOVASCULAR: Regular rate and rhythm without murmurs, gallops, or rubs. RESPIRATORY: Breath sounds equal bilaterally. No accessory muscle use. chest tube removed earlier GASTROINTESTINAL: Abdomen soft, non-tender, nondistended. MUSCULOSKELETAL: No cyanosis, or edema. BACK: Nontender without obvious deformity. No CVA tenderness. Hospital Course surgery: Off-pump Coronary Artery Bypass Grafting x 1 with reverse saphenous vein graft to RCA, Right Leg Endoscopic Vein [place] 3/ crystalloid 2100cc, EBL 100, urine 600 extubated after surgery 3/2 up in chair, on nasal cannula painful, will add prn morphine sulfate for breakthrough pain aggressive pulm toileting OOB, ambulate 3/3 chest tube removed without difficulty wean 02 gentle diuresis pain controlled eval for dc in am Pt Condition on Discharge: Good Discharge Disposition: Disch w/ Home Health Serv Discharge Instructions DIET: Follow Instructions for: Heart Healthy Diet Activities you can perform: Full Weight Bearing, Shower Only-No Bath Activities to avoid: Strenuous Activity, Driving Additional Activity Instructio: no lifting >8lbs or gallon of milk Follow up Referrals: Cardiology Surgical New Medications: Amiodarone (Amiodarone) 200 Mg Tab 200 MG PO Q12HR heart rhythm #28 Ref 0 TAB Clopidogrel (Plavix) 75 Mg Tab 75 MG PO DAILY Blood Clot Prevention #30 Ref 2 TAB Docusate Sodium (Dok) 100 Mg Cap 100 MG PO BID Constipation #60 CAP Metoprolol Tartrate (Metoprolol Tartrate) 25 Mg Tab 25 MG PO BID Blood Pressure Management #60 Ref 2 TAB Continued Medications: Aspirin (Aspirin) 81 Mg Chew 81 MG CHEW DAILY Ref 0 TAB Rosuvastatin (Crestor) 40 Mg Tab 40 MG PO DAILY Cholesterol Management #30 Ref 0 TAB Discontinued Medications: Metoprolol Tartrate (Metoprolol Tartrate) 50 Mg Tab 50 MG PO BID #60 Ref 0 TAB Nitroglycerin SL (Nitrostat SL) 0.4 Mg Subl 0.4 MG SL DIRECTED 1 tablet under the tongue as needed for chest pain. Repeat every 5 minutes for a total of 3 DOSES or call 911 if NO relief. PRN CHEST PAIN #100 Ref 0 TAB.SL Prasugrel (Effient) 10 Mg Tab 10 MG PO DAILY Blood Clot Prevention #30 Ref 0 TAB Sophia Jauregui Sep 22, 2016 16:34
[2016-09-22] MEDS ORDERED: BISACODYL 10 MG SUPP RECTAL ONE (17:00)
--- NOTE | 2016-09-22 17:05 | HHI.DS ---
Sophia Jauregui 09/22/16 1705: Discharge Summary Admission Date Sep 20, 2016 at 05:36 Admitting Diagnosis (1) CAD (coronary artery disease) Diagnosis: Principal (2) GERD (gastroesophageal reflux disease) Diagnosis: Principal (3) HTN (hypertension), benign Diagnosis: Principal (4) S/P CABG x 2 Diagnosis: Secondary Procedures 1. Off-pump Coronary Artery Bypass Grafting x 1 with reverse saphenous vein graft to RCA 09/20/16 2. Right Leg Endoscopic Vein [place] 3. Intraoperative Vein Mapping. Brief History 61/ male hx CAD, multiple stents to RCA / PCI eval for CABG to RCA PMH: CAD/ [place], GERD, HTN, HLP, surgery: Off-pump Coronary Artery Bypass Grafting x 1 with reverse saphenous vein graft to RCA, Right Leg Endoscopic Vein [place] 09/20 crystalloid 2100cc, EBL 100, urine 600 extubated after surgery CBC/BMP: 09/22/16 0300 09/22/16 0300 Significant Findings Laboratory Tests Test 09/21/16 09/22/16 04:35 03:00 Red Blood Count 4.20 MIL/MM3 3.74 MIL/MM3 (4.50-5.90) (4.50-5.90) Hematocrit 37.7 % 33.9 % (39.0-51.0) (39.0-51.0) Platelet Count 140 TH/MM3 123 TH/MM3 (150-450) (150-450) Random Glucose 113 MG/DL 122 MG/DL (74-106) (74-106) Calcium Level 7.9 MG/DL 8.1 MG/DL (8.5-10.1) (8.5-10.1) Hemoglobin 11.6 GM/DL (13.0-17.0) Monocytes (%) (Auto) 10.4 % (0.0-8.0) Monocytes # (Auto) 1.0 TH/MM3 (0-0.9) Anion Gap 3 MEQ/L (5-15) PE at Discharge GENERAL: SKIN: Warm and dry.prevena to chest, incision intact left leg, with some mild ecchymosis HEAD: Normocephalic. EYES: No scleral icterus. No injection or drainage. NECK: Supple, trachea midline. No JVD or lymphadenopathy. CARDIOVASCULAR: Regular rate and rhythm without murmurs, gallops, or rubs. RESPIRATORY: Breath sounds equal bilaterally. No accessory muscle use. chest tube removed earlier GASTROINTESTINAL: Abdomen soft, non-tender, nondistended. MUSCULOSKELETAL: No cyanosis, or edema. BACK: Nontender without obvious deformity. No CVA tenderness. Pt Condition on Discharge: Good Discharge Disposition: Disch w/ Home Health Serv Discharge Instructions DIET: Follow Instructions for: Heart Healthy Diet Activities you can perform: Full Weight Bearing, Shower Only-No Bath Activities to avoid: Strenuous Activity, Driving Additional Activity Instructio: no lifting >8lbs or gallon of milk Follow up Referrals: Cardiology - 4 Weeks with Chaparro Chu MD, [facility] PCP Follow-up - 2 Weeks with Trinidad Thao MD Surgical New Medications: Amiodarone (Amiodarone) 200 Mg Tab 200 MG PO Q12HR heart rhythm #28 Ref 0 TAB Clopidogrel (Plavix) 75 Mg Tab 75 MG PO DAILY Blood Clot Prevention #30 Ref 2 TAB Docusate Sodium (Dok) 100 Mg Cap 100 MG PO BID Constipation #60 CAP Metoprolol Tartrate (Metoprolol Tartrate) 25 Mg Tab 25 MG PO BID Blood Pressure Management #60 Ref 2 TAB Continued Medications: Aspirin (Aspirin) 81 Mg Chew 81 MG CHEW DAILY Ref 0 TAB Rosuvastatin (Crestor) 40 Mg Tab 40 MG PO DAILY Cholesterol Management #30 Ref 0 TAB Discontinued Medications: Metoprolol Tartrate (Metoprolol Tartrate) 50 Mg Tab 50 MG PO BID #60 Ref 0 TAB Nitroglycerin SL (Nitrostat SL) 0.4 Mg Subl 0.4 MG SL DIRECTED 1 tablet under the tongue as needed for chest pain. Repeat every 5 minutes for a total of 3 DOSES or call 911 if NO relief. PRN CHEST PAIN #100 Ref 0 TAB.SL Prasugrel (Effient) 10 Mg Tab 10 MG PO DAILY Blood Clot Prevention #30 Ref 0 TAB Isabel Odonnell MD 09/23/16 1221: Discharge Summary Admission Date 09/20/16 Discharge Date: Sep 20, 2016 Admitting Diagnosis CAD (1) CAD (coronary artery disease) Diagnosis: Principal (2) Cardiomyopathy, ischemic Diagnosis: Principal Procedures CABG x 1 Brief History 61/ male hx CAD, multiple stents to RCA / PCI eval for CABG to RCA PMH: CAD/ [place], GERD, HTN, HLP, CBC/BMP: 3/3/17 0300 09/22/16 0300 Imaging Last Impressions Chest X-Ray 09/23/16 0600 Signed Impressions: Service Date/Time: Friday, September 23, 2016 03:37 - CONCLUSION: Slight interval worsening in aeration. Sanjeev Plata MD PE at Discharge chest - CTA COR - RRR ABD - soft, NT, NABS wound - dry and intact Hospital Course surgery: Off-pump Coronary Artery Bypass Grafting x 1 with reverse saphenous vein graft to RCA, Right Leg Endoscopic Vein [place] 3 crystalloid 2100cc, EBL 100, urine 600 extubated after surgery 3/ up in chair, on nasal cannula painful, will add prn morphine sulfate for breakthrough pain aggressive pulm toileting OOB, ambulate 3 chest tube removed without difficulty wean 02 gentle diuresis pain controlled Pt Condition on Discharge: Good Discharge Disposition: Disch w/ Home Health Serv Discharge Instructions DIET: Follow Instructions for: Heart Healthy Diet Activities you can perform: Weight Bearing as [place]ho[place], Shower Only-No Bath Activities to avoid: Lifting/Bending, Driving Follow up Referrals: Cardiology - 4 Weeks with Chaparro Chu MD, [facility] PCP Follow-up - 2 Weeks with Trinidad Thao MD Surgical New Medications: Amiodarone (Amiodarone) 200 Mg Tab 200 MG PO Q12HR heart rhythm #28 Ref 0 TAB Clopidogrel (Plavix) 75 Mg Tab 75 MG PO DAILY Blood Clot Prevention #30 Ref 2 TAB Docusate Sodium (Dok) 100 Mg Cap 100 MG PO BID Constipation #60 CAP Metoprolol Tartrate (Metoprolol Tartrate) 25 Mg Tab 25 MG PO BID Blood Pressure Management #60 Ref 2 TAB Continued Medications: Aspirin (Aspirin) 81 Mg Chew 81 MG CHEW DAILY Ref 0 TAB Rosuvastatin (Crestor) 40 Mg Tab 40 MG PO DAILY Cholesterol Management #30 Ref 0 TAB Discontinued Medications: Metoprolol Tartrate (Metoprolol Tartrate) 50 Mg Tab 50 MG PO BID #60 Ref 0 TAB Nitroglycerin SL (Nitrostat SL) 0.4 Mg Subl 0.4 MG SL DIRECTED 1 tablet under the tongue as needed for chest pain. Repeat every 5 minutes for a total of 3 DOSES or call 911 if NO relief. PRN CHEST PAIN #100 Ref 0 TAB.SL Prasugrel (Effient) 10 Mg Tab 10 MG PO DAILY Blood Clot Prevention #30 Ref 0 TAB Sophia Jauregui Sep 22, 2016 17:05 Isabel Odonnell MD Sep 23, 2016 12:21
[2016-09-22] MEDS: ATORVASTATIN 80 MG TAB PO SCH (20:30)
[2016-09-22] MEDS: diphenhydrAMINE HCL 50 MG CAP PO PRN (20:30)
[2016-09-22] MEDS: SENNOSIDES 8.6 MG TAB PO SCH (20:30)
[2016-09-23] VITALS (15 sets, daily range): BP systolic 96–123; BP diastolic 51–59; PULSE 63–80; RESP 13–18; TEMP 98.1–98.8; O2SAT 91–96
[2016-09-23] MEDS: MAGNESIUM HYDROXIDE SUSP 30 ML CUP PO SCH (03:23)
[2016-09-23] MEDS: PANTOPRAZOLE SOD 40 MG DELAYED RELEASE TAB PO SCH (05:41)
[2016-09-23] MEDS: oxyCODONE/ACETAMINOPHEN 5 MG/325 MG TAB PO PRN ×3 (05:45→14:09)
--- NOTE | 2016-09-23 07:06 | RADRPT ---
EXAM DATE/TIME: 09/23/2016 03:37 [facility] COMPARISON: CHEST SINGLE AP, September 21, 2016, 4:15. INDICATIONS : Shortness of breath, possible pulmonary disease. MEDICAL HISTORY : None. SURGICAL HISTORY : CABG. ENCOUNTER: Subsequent ACUITY: 4 - 6 days PAIN SCORE: 0/10 LOCATION: Bilateral chest FINDINGS: There has been interval removal of right neck central line. Hazy bibasilar parenchymal opacities are present. Cardiac contours are grossly stable. CONCLUSION: Slight interval worsening in aeration. Sanjeev Plata MD on September 23, 2016 at 7:04 Board Certified Radiologist. This report was verified electronically.
[2016-09-23] MEDS: RESP: ALBUTEROL 2.5 MG/IPRATROPIUM 0.5 MG NEB (SCH) NEB (08:09)
[2016-09-23] MEDS: POLYETHYLENE GLYCOL 17 GM PKG PO SCH (09:19)
[2016-09-23] MEDS: CLOPIDOGREL 75 MG TAB PO SCH (09:20)
[2016-09-23] MEDS: ASPIRIN 81 MG CHEW TAB PO SCH (09:20)
[2016-09-23] MEDS: MULTIVITAMINS/MINERALS THERAPEUTIC TAB PO SCH (09:20)
[2016-09-23] MEDS: METOPROLOL TARTRATE 25 MG TAB PO SCH (09:20)
[2016-09-23] MEDS: DOCUSATE SODIUM 100 MG CAP PO SCH (09:20)
[2016-09-23] MEDS: AMIODARONE 200 MG TAB PO SCH (09:20)
[2016-09-23] MEDS: SODIUM CHLORIDE 0.9% FLUSH 5 ML FLUSH IV FLUSH SCH (09:20)
== END 2016-09-23 16:58 | disposition home or self-care (01) | DRG 234 ==
LOC: HSDI 09-20 05:36 → HCVR 09-20 10:56 → HCPC 09-21 12:52
PROVIDERS: ADMIT Thoracic Surgery (Cardiothoracic Vascular Surgery); ATTEND Thoracic Surgery (Cardiothoracic Vascular Surgery)
PROC: 4A023N7 Measurement of Cardiac Sampling and Pressure, Left Heart, Percutaneous Approach (ICD-10-PCS; 2016-09-18)
PROC: B2111ZZ Fluoroscopy of Multiple Coronary Arteries using Low Osmolar Contrast (ICD-10-PCS; 2016-09-18)
PROC: B2151ZZ Fluoroscopy of Left Heart using Low Osmolar Contrast (ICD-10-PCS; 2016-09-18)
PROC: 021009W Bypass Coronary Artery, One Artery from Aorta with Autologous Venous Tissue, Open Approach (ICD-10-PCS; principal; 2016-09-20 07:07)
PROC: 06BP4ZZ Excision of Right Saphenous Vein, Percutaneous Endoscopic Approach (ICD-10-PCS; 2016-09-20 07:07)
DX: I25.118 Atherosclerotic heart disease of native coronary artery with other forms of angina pectoris (principal); T82.855A Stenosis of coronary artery stent, initial encounter; I10 Essential (primary) hypertension; I25.2 Old myocardial infarction; E78.5 Hyperlipidemia, unspecified; K21.9 Gastro-esophageal reflux disease without esophagitis; Z79.82 Long term (current) use of aspirin; I25.5 Ischemic cardiomyopathy; F17.210 Nicotine dependence, cigarettes, uncomplicated; Z85.820 Personal history of malignant melanoma of skin
CPT/HCPCS: 71010; 71020; 76937; 80048; 81001; 82948; 83036; 83735; 85014; 85025; 85027; 85610; 86850; 86900; 86901; 86920; 87641; 93005; 93458; 93880; 93970; 93998; 94002; 94010; 94150; 94620; 94640; 94664; 94667; 94668; C1768; C1769; C1893; C9248; J0131; J0360; J1644; J1815; J1940; J2250; J2270; J2405; J2720; J3010; J3370; J3475; J3480; J7030; J7040; J7050; J7120; Q0163; Q9967

== ENCOUNTER → 2017-05-04 | Outpatient (CLI) | payer OTHER ==
[~2017-05-04] MED LIST changes: +AMIO200T PO; +DOCU1CAP39 PO; +METO25TA3 PO; -METO50TA PO; -NITR0.4S SL; +NORC5TAB PO; +PLAV75TA29 PO; -PRAS10TA PO
[2017-05-04 14:03] LABS: APTT (PATIENT) 26.1 SEC (24.3-30.1); PROTHROMBIN TIME - PATIENT 10.5 SEC (9.8-11.6)
--- NOTE | 2017-05-04 15:15 | RADRPT ---
EXAM DATE/TIME: 05/04/2017 14:04 [facility] COMPARISON: CHEST PA & LAT, September 18, 2016, 13:34. INDICATIONS : Evaluate for pneumothorax, pneumonia, and communicable disease. Pre-op sternal wire replacement. MEDICAL HISTORY : None. SURGICAL HISTORY : CABG. 09/20/16 CABG ENCOUNTER: Initial ACUITY: 1 day PAIN SCORE: 0/10 LOCATION: Bilateral chest FINDINGS: PA and lateral views of the chest demonstrate the lungs to be symmetrically aerated without evidence of mass, infiltrate or effusion. Sternal wires previous bypass are noted. Right coronary stent is e vident. The cardiomediastinal contours are unremarkable. Osseous structures are intact. CONCLUSION: No acute disease. Christopher Paredes MD FACR on May 04, 2017 at 15:10 Board Certified Radiologist. This report was verified electronically.
== END ==
LOC: CPRE 13:11
PROVIDERS: ATTEND Thoracic Surgery (Cardiothoracic Vascular Surgery)
DX: Z01.811 Encounter for preprocedural respiratory examination (principal); Z01.812 Encounter for preprocedural laboratory examination; T81.89XA Other complications of procedures, not elsewhere classified, initial encounter
CPT/HCPCS: 36415; 71020; 85610; 85730

== ENCOUNTER → 2017-05-07 | Day surgery (SDC) | payer OTHER ==
[~2017-05-07] VITALS: Ht 170.2 cm; Wt 85.7 kg
[~2017-05-07] MED LIST changes: +ACETAMINOPHEN/HYDROcodone 325 MG/5 MG TAB ONE; +ACETAMINOPHEN/HYDROcodone 325 MG/5 MG TAB PO PRN; -AMIO200T PO; +BUPIVACAINE/EPINEPHRINE 0.75% PF 30 ML VIAL INFIL ONE; +CHLORHEXIDINE GLUCONATE 2 % 1 PACK (2 CLOTHS) TOPICAL PRN; +DO NOT ADM ANY ANTICOAGULANT DRUGS PRN; -DOCU1CAP39 PO; +INSULIN HUMAN REGULAR 1,000 UNITS/10 ML VIAL SQ PRN; +LACTATED RINGER'S 1000 ML IV PRN; +LIDOCAINE HCL 1% PF 5 ML AMPULE OTHER ONE; +METOPROLOL TARTRATE 25 MG TAB PO PRN; +MIDAZOLAM HCL 2 MG/2 ML VIAL IV ONE; +POVIDONE IODINE 5% (ANTISEPSIS KIT) 4 APPLICATIONS EACH NARE PRN; +PROPOFOL 200 MG/20 ML AMP IV ONE; +SODIUM CHLORID 0.9% 500 ML IV PRN; +ceFAZolin 2 GM PREMIX 50 ML ONE
--- NOTE | 2017-05-07 08:10 | PD.OP ---
cc: Eric Martin MD; Chaparro Chu MD Operative Report Date of Surgery: May 07, 2017 Preoperative Diagnosis: Postoperative Diagnosis: Procedure: 1. Removal of Manubrial Wires x 2 2. Scar Revision. Surgeon: Eric Martin Wastewater Analyst(s): Florian Dale Operation and Findings: ATE OF SURGERY: 05/07/2017 PREOPERATIVE DIAGNOSES 1. Painful Protruding Sternal Wire. 2. Hypertrophic Painful Scar 3. Status post mediastinotomy. 4. Status post Off Pump Coronary Artery Bypass Grafting. POSTOPERATIVE DIAGNOSES Same SURGICAL PROCEDURE 1. Removal of Manubrial Wires x [address]. [address] Revision. SURGEON Dr. Eric Martin. COMMAND POST CRAFTSMAN NIKHIL Newell ANESTHESIA Local Marcaine with IV sedation. FLAME PLANER Josefa Butler, GREEN INSPECTOR Chaparro Martinez MD COUNTS Correct. DRAINS None. COMPLICATIONS None. INDICATION Mr. Kaplan is a pleasant 62-year-old gentleman status post OPCABG with a median sternotomy approximately 7 months ago who now presents with a symptomatic, protruding manubrial wire with a focal area of painful hypertrophic scar. The patient is being taken back to the operating room for surgical removal of the sternal wire and revision of scar. PROCEDURE The patient was brought to the operating room and placed supine on the OR table. Following induction of IV sedation and placement of appropriate monitoring devices the chest was prepped and draped in a standard sterile fashion. The skin overlying the well-healed mediastinotomy incision and the palpable subcutaneous protruded sternal wire was anesthetized with Marcaine 0.75 % with epinephrine. A approximately 5 cm incision was then made overlying the wire and kemal of scar tenderness and carried down to the level of the sternal wire. The lower two manubrial wires were dissected free laterally, divided and removed en bloc. The area of tenderness in the scar was also excised. Strict hemostasis was assured. The wound was copiously irrigated with sterile saline and closed in three layers. The skin was closed with Dermabond. The patient tolerated the procedure well and was transferred to the recovery room in stable condition. Eric Martin MD May 07, 2017 08:10
[2017-05-07 09:19] VITALS: BP 140/69; PULSE 59; RESP 20; TEMP 96.2; O2SAT 95
== END | disposition home or self-care (01) ==
LOC: HSDC 05:25
PROVIDERS: ATTEND Thoracic Surgery (Cardiothoracic Vascular Surgery)
DX: T84.84XA Pain due to internal orthopedic prosthetic devices, implants and grafts, initial encounter (principal); L91.0 Hypertrophic scar; I25.10 Atherosclerotic heart disease of native coronary artery without angina pectoris; I10 Essential (primary) hypertension; Z95.1 Presence of aortocoronary bypass graft
CPT/HCPCS: 00300; 20680; J0690; J2250; J3010; J7120